=== PATIENT | male | born 1995 | race Caucasian/White ===

== ENCOUNTER 2022-11-16 13:50 | Emergency (ER) | payer MEDICAID ==
[~2022-11-16] VITALS: Ht 185.4 cm; Wt 70.5 kg
[2022-11-16 14:52] VITALS: BP 115/72
== END 2022-11-16 14:56 | disposition home or self-care (01) ==
LOC: ER 13:51
DX: K30 Functional dyspepsia (principal); F41.9 Anxiety disorder, unspecified; Z88.2 Allergy status to sulfonamides
CPT/HCPCS: 99282

== ENCOUNTER 2025-01-28 02:34 | Emergency (ER) | payer MEDICAID ==
[~2025-01-28] VITALS: Ht 188 cm; Wt 72.0 kg
--- NOTE | 2025-01-28 03:07 | Physician Documentation ---
History of Present Illness ~ Chief Complaint: Hypoglycemia Stated Complaint: LOW BLOOD SUGAR A ALS Time Seen by MD: 03:06 HPI Patient presents to the emergency room with chief complaint of hypoglycemia. Parents were at bedside state that they heard his dog scratching at the door therefore they went to go check on their son and they found him standing in the corner of his room altered he had not responsive standing in the corner. Sugar administered and patient responded. He reports that he has been out of his long-acting insulin has been trying to work with his doctor in pharmacy to get his long-acting insulin as they has been out of their supply. He has been trying to use fast acting and this is the result. Patient has been a type 1 diabetic for proximally 10 years but reports no significant hypoglycemic events. Medication Reconciliation Allergies: Coded Allergies: sulfamethoxazole (Unverified Allergy, Unknown, 11/16/22) trimethoprim (Unverified Allergy, Unknown, 11/16/22) Scheduled Insulin Glargine,Hum.rec.anlog* (Lantus*), 30 UNITS SUBCUT HS Past Medical History Past Medical History: Anxiety Past Surgical History: no surgical history Alcohol Use: None Drug Use: none Lives In: Home Review of Systems ROS All review of systems negative except as per HPI Physical Exam Vital Signs: Source: Oral, Heart Rate: 94, Respiratory Rate: 16, BP: 126/75, Pulse Oximetry: 100, Weight: 72.000 Physical Exam General: Patient is awake, alert, oriented x4 in no acute distress Head: Normocephalic and atraumatic. Eyes: Conjunctival normal. EOMI. PERRL. ENT: Mucous membranes moist. Neck: Supple, trachea is midline. Chest: Clear to auscultation bilaterally without rales, rhonchi, or wheezes. There is no accessory muscle use or retractions. Cardiac: RRR without murmurs, gallops, or rubs. Abd: Soft, nondistended, nontender, with normoactive bowel sounds. No guarding, rebound, or rigidity. Progress Results/Orders Results/Orders Vital Signs 01/28/25 01/28/25 01/28/25 01/28/25 02:40 02:47 02:48 03:42 Pulse 82 94 73 Resp 16 16 16 B/P (MAP) 126/75 126/75 (92) 125/77 (93) Pulse Ox 100 100 100 Laboratory Tests Test 01/28/25 02:41 01/28/25 03:08 Glucometer 164 H 182 H Medical Decision Making Findings Patient presents to the emergency room with hypoglycemic episode. He has been monitored in the emergency room for a time in his eating and he had not suspect he will suffer from additional hypoglycemic episodes this evening. Differentials other than hypoglycemia or cause for hypoglycemia included infectious process however given patient's history and report of change in his insulin he had not feel emergent labs are necessary. I do not suspect infectious process. ER precautions discussed. I have given him a hard copy of his long-acting insulin therefore he can go to any pharmacy that has supplies. Departure Disposition: HOME / SELF CARE / HOMELESS Impression: Primary Impression: Hypoglycemia Condition: Improved Discharge Instructions: Hypoglycemia, [id number] Referrals: NO PRIMARY CARE PROVIDER (PCP) Prescriptions Insulin Glargine,Hum.rec.anlog* (Lantus*) 100 Unit/1 Ml Vial 30 UNITS SUBCUT HS for 30 Days, #15 ML Prov: ROBSON WALLS MD 01/28/25 Signature Scribe Signature: No scribe Attestation: The note accurately reflects work and decisions made by me.Robson Walls MD 01/28/25 03:23 ROBSON WALLS MD Jan 28, 2025 03:07
[2025-01-28] MEDS ORDERED: LANTUS SUBCUT (03:17)
[2025-01-28 03:42] VITALS: BP 125/77; PULSE 73; RESP 16; O2SAT 100
[2025-01-28 05:14] VITALS: TEMP 98.7
== END 2025-01-28 05:16 | disposition home or self-care (01) ==
LOC: ER 02:34
DX: E10.649 Type 1 diabetes mellitus with hypoglycemia without coma (principal); F41.9 Anxiety disorder, unspecified; Z88.2 Allergy status to sulfonamides; Z79.4 Long term (current) use of insulin
CPT/HCPCS: 82948; 99283